=== PATIENT | male | born 1955 | race Caucasian/White ===

== ENCOUNTER 2024-11-29 17:08 | Emergency (ER) | payer MEDICARE, OTHER ==
[2024-11-29] MEDS: Sodium Chloride 0.9% 1,000 ML IV ONE (18:09)
[2024-11-29 18:12] LABS: BASOPHILS ABSOLUTE AUTO 0.05 K/uL (0.00-0.20); BASOPHILS PERCENT AUTO 0.6 % (0.0-1.0); EOSINOPHILS ABSOLUTE AUTO 0.15 K/uL (0.00-0.45); EOSINOPHILS PERCENT AUTO 1.9 % (0.0-6.0); HEMATOCRIT 42.9 % (42.0-52.0); IMMATURE GRAN ABSOLUTE AUTO 0.02 K/uL (0.00-0.05); IMMATURE GRAN PERCENT AUTO 0.2 % (0.0-0.4); LYMPHOCYTES ABSOLUTE AUTO 1.86 K/uL (1.00-4.80); MEAN CORPUSCULAR HEMOGLOBIN 29.5 pg (28.0-32.0); MEAN CORPUSCULAR VOLUME 84.3 fL (83.0-99.0); MEAN PLATELET VOLUME 10.2 fL (9.4-12.4); MONOCYTES ABSOLUTE AUTO 1.04 K/uL (0.00-0.80); MONOCYTES PERCENT AUTO 12.9 % (0.0-8.0); NEUTROPHILS ABSOLUTE AUTO 4.95 K/uL (1.80-7.70); NEUTROPHILS PERCENT AUTO 61.4 % (41.0-71.0); PLATELET COUNT,PLT 160 K/uL (150-400); RED BLOOD CELL COUNT 5.09 M/uL (4.52-5.90); WHITE BLOOD CELL COUNT,WBC 8.07 K/uL (3.9-11.3)
[2024-11-29 18:52] LABS: A/G RATIO 1.3 (0.9-1.6); ALBUMIN 3.9 g/dL (3.4-5.0); BILIRUBIN TOTAL 1.5 mg/dL (0.2-1.0); CALCIUM 8.7 mg/dL (8.5-10.1); CARBON DIOXIDE,CO2 25.6 mmol/L (21.0-32.0); EST CRCL DRUG DOSING (CG) 68.4 mL/min; MAGNESIUM 1.5 mg/dL (1.8-2.4); POTASSIUM,K 3.4 mmol/L (3.5-5.1); PROTEIN TOTAL,TP 6.8 g/dL (6.4-8.2); TSH ULTRASENSITIVE 0.94 uIU/mL (0.36-3.74)
[2024-11-29 19:32] LABS: APPEARANCE,URINE CLEAR; BILIRUBIN,URINE NEGATIVE (NEGATIVE); COLOR,URINE YELLOW; GLUCOSE,URINE NEGATIVE (NEGATIVE); KETONES,URINE 40 mg/dL (NEGATIVE); LEUKOCYTE ESTERASE,URINE NEGATIVE (NEGATIVE); NITRITE,URINE NEGATIVE (NEGATIVE); OCCULT BLOOD,URINE NEGATIVE (NEGATIVE); PROTEIN,URINE NEGATIVE (NEGATIVE); UROBILINOGEN,URINE 0.2 EU/dL (<2.0)
[2024-11-29 19:41] LABS: AMPHETAMINES SCREEN, URINE NEGATIVE (CUTOFF=500); BARBITURATE SCREEN,URINE NEGATIVE (CUTOFF=200); BENZODIAZEPINES SCREEN,URINE NEGATIVE (CUTOFF=150); BUPRENORPHINE SCREEN,URINE NEGATIVE (CUTOFF=10); METHADONE SCREEN, URINE NEGATIVE (CUTOFF=200); METHAMPHETAMINES SCREEN, URINE NEGATIVE (CUTOFF=500); OXYCODONE SCREEN,URINE NEGATIVE (CUT0FF=100); PCP SCREEN,URINE NEGATIVE (CUTOFF=25); THC SCREEN,URINE 20 NG/ML NEGATIVE (CUTOFF=50)
== END 2024-11-29 20:19 | disposition home or self-care (01) ==
LOC: MW.ED 17:08
DX: R00.2 Palpitations (principal); I10 Essential (primary) hypertension; E78.00 Pure hypercholesterolemia, unspecified; Z75.3 Unavailability and inaccessibility of health-care facilities; Z88.0 Allergy status to penicillin; Z88.1 Allergy status to other antibiotic agents; Z79.899 Other long term (current) drug therapy
CPT/HCPCS: 36415; 71045; 80053; 80305; 81003; 83735; 84443; 84484; 85025; 85379; 93005; 96360; 99285; J7030; 93010; 99284